=== PATIENT | male | born 2000 | race Caucasian/White ===

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

== ENCOUNTER 2022-01-06 17:05 | Emergency (ER) | payer OTHER ==
[2022-01-06 17:29] VITALS: BP 129/75; PULSE 71
== END 2022-01-06 18:45 | disposition home or self-care (01) ==
LOC: JD.ED 17:05
DX: I62.9 Nontraumatic intracranial hemorrhage, unspecified (principal); Z79.899 Other long term (current) drug therapy
CPT/HCPCS: 70450; 70450-26; 71101-26-LT; 71101-LT; 99284